=== PATIENT | female | born 1940 | race Caucasian/White ===

== ENCOUNTER → 2021-10-22 09:45 | Outpatient (BNVA) | payer MEDICARE, SELFPAY | PROVIDERS: PCP Family Medicine; Visit Provider Internal Medicine Cardiovascular Disease | DX: I11.0 Hypertensive heart disease with heart failure (principal); R06.02 Shortness of breath; I50.33 Acute on chronic diastolic (congestive) heart failure; I48.11 Longstanding persistent atrial fibrillation; Z95.0 Presence of cardiac pacemaker; R06.00 Dyspnea, unspecified; M79.89 Other specified soft tissue disorders | CPT/HCPCS: 80048; 83880; 99214; 99215 ==

== ENCOUNTER → 2022-01-31 10:01 | Outpatient (BNVA) | payer MEDICARE, SELFPAY | PROVIDERS: PCP Family Medicine; Visit Provider Internal Medicine Cardiovascular Disease | DX: Z45.010 Encounter for checking and testing of cardiac pacemaker pulse generator [battery] (principal) | CPT/HCPCS: 93279 ==

== ENCOUNTER 2022-04-08 12:50 | Outpatient (CLI) | payer MEDICARE, SELFPAY ==
--- NOTE | 2022-04-08 13:00 | USCV_ITS ---
Keara Perez Age: 81 Gender: F : 1940 Exam Date: 04/08/2022 13:06 Ordering Phys: Naa Ferguson MD ([email or web address]) Technologist: Pilo Nolasco Exam Location: [facility] – [place] Indication: sob/chf BP: 170 / 90 HR: 79 Rhythm: Sinus Technical Quality: Adequate MEASUREMENTS (Male / Female) Normal Values 2D ECHO LV Diastolic Diameter PLAX 5.8 cm 4.2 - 5.9 / 3.9 - 5.3 cm LV Systolic Diameter PLAX 3.5 cm IVS Diastolic Thickness 0.7 cm 0.6 - 1.0 / 0.6 - 0.9 cm IVS Systolic Thickness 0.9 cm LVPW Diastolic Thickness 1.1 cm 0.6 - 1.0 / 0.6 - 0.9 cm LVPW Systolic Thickness 1.6 cm LVOT Diameter 2.0 cm LV Ejection Fraction 2D Teich 69.3 % LV Ejection Fraction MOD 2C 60.8 % LV Ejection Fraction 2C AL 59.4 % LA Diameter 3.2 cm LA Width 3.8 cm LA Height 4.5 cm RA Width 3.4 cm RA Height 4.1 cm Aorta at Sinotubular Diameter 2.5 cm IVC Diameter 1.5 cm M-MODE Aortic Annulus Diameter 2.8 cm LA Ao Ratio MM 1.1 MV E Point Septal Separation 0.4 cm DOPPLER AV Peak Velocity 128.5 cm/s LVOT Peak Velocity 81.0 cm/s AV Area Cont Eq vti 2.1 cm squared AV Area Cont Eq pk 2.0 cm squared MV Peak Velocity 180.0 cm/s MV Area PHT 5.9 cm squared Mitral E to A Ratio 3.2 MV E' Velocity 75.0 cm/s Mitral E to MV E' Ratio 11.2 Mitral E to LV E' Lateral Ratio 11.4 Mitral E to LV E' Septal Ratio 10.9 TR Peak Velocity 342.8 cm/s TR Peak Gradient 47.0 mmHg TR Mean Velocity 262.3 cm/s TR Mean Gradient 29.4 mmHg TR Velocity Time Integral 99.6 cm Right Atrial Pressure 3.0 mmHg Pulmonary Artery Systolic Pressu 50.0 mmHg RV Acceleration Time 0.1 s RV Ejection Time 0.3 s RV AcT/ET 0.2 FINDINGS Left Ventricle Left ventricle is normal in size. LV systolic function is normal with EF of 55 to 60%. No regional wall motion abnormalities are seen. Diastolic function is indeterminate because of paced rhythm. Right Ventricle Normal in size and function. Pacemaker lead is seen Right Atrium Normal in size Left Atrium Normal in size Mitral Valve Moderate to severe mitral annular calcification is seen. Mild mitral regurgitation. Mild mitral stenosis with mean gradient 5 mmHg. Aortic Valve Grossly normal normal aortic valve. No significant aortic stenosis is seen. Trace regurgitation. Tricuspid Valve Mild tricuspid regurgitation. RVSP is 40 to 45 mmHg. This is consistent with mild to moderate pulmonary hypertension. Pulmonic Valve Not well-visualized. Trace pulmonic regurgitation. Pericardium Normal Aorta Normal in size IVC CONCLUSIONS LV systolic function is normal with a EF of 55 to 60%. Diastolic function is indeterminate because of paced rhythm. Moderate to severe mitral annular calcification seen. Mild mitral regurgitation. Mild mitral stenosis. Trace aortic regurgitation. Mild tricuspid regurgitation. Mild to moderate pulmonary hypertension. Trace pulmonic regurgitation. No comparison studies are available Mikhail Montoya MD (Electronically Signed) Final Date: 12 April 2022 14:41 S
== END 2022-04-08 12:51 | disposition home or self-care (01) ==
LOC: RAD 12:51
PROVIDERS: PCP Family Medicine; Visit Provider Internal Medicine Cardiovascular Disease
DX: R06.00 Dyspnea, unspecified (principal); R06.02 Shortness of breath; I25.10 Atherosclerotic heart disease of native coronary artery without angina pectoris; I34.0 Nonrheumatic mitral (valve) insufficiency; I07.1 Rheumatic tricuspid insufficiency; I27.20 Pulmonary hypertension, unspecified
CPT/HCPCS: 93306

== ENCOUNTER → 2022-05-28 14:15 | Outpatient (BNVA) | payer MEDICARE, MEDICAID, SELFPAY | PROVIDERS: PCP Family Medicine; Visit Provider Internal Medicine Cardiovascular Disease | DX: I48.11 Longstanding persistent atrial fibrillation (principal); R06.02 Shortness of breath; Z95.0 Presence of cardiac pacemaker; M79.89 Other specified soft tissue disorders; I10 Essential (primary) hypertension; Z87.891 Personal history of nicotine dependence | CPT/HCPCS: 99213; 99214 ==

== ENCOUNTER → 2022-11-12 10:00 | Outpatient (BNVA) | payer MEDICARE, MEDICAID, SELFPAY | PROVIDERS: PCP Family Medicine; Visit Provider Internal Medicine Cardiovascular Disease | DX: Z45.010 Encounter for checking and testing of cardiac pacemaker pulse generator [battery] (principal); I10 Essential (primary) hypertension; I48.11 Longstanding persistent atrial fibrillation; M79.89 Other specified soft tissue disorders; R06.02 Shortness of breath; Z87.891 Personal history of nicotine dependence | CPT/HCPCS: 99214 ==

== ENCOUNTER 2022-11-19 09:08 | Outpatient (CLI) | payer MEDICARE, MEDICAID, SELFPAY ==
[2022-11-19 09:39] LABS: Basophils % 0.4 %; Eosinophils # 0.2 10^3/uL (0.0-0.8); Eosinophils % 2.1 %; Hematocrit 43.2 % (37.0-47.0); Hemoglobin 13.6 g/dL (11.5-15.3); Lymphocytes # 2.9 10^3/uL (0.8-4.8); Lymphocytes % 29.4 %; Mean Corpuscular HGB Conc 31.5 g/dL (30.0-36.0); Mean Corpuscular Hemoglobin 28.2 pg (28.0-34.0); Mean Corpuscular Volume 89.6 fl (81-99); Mean Platelet Volume 8.7 fL (7.4-10.4); Monocytes # 0.5 10^3/uL (0.2-0.9); Monocytes % 5.5 %; Neutrophils # 6.06 10^3/uL (1.8-7.7); Neutrophils % 62.3 %; Nucleated Red Blood Cells % 0 %; Platelet Count 299 10^3/cmm (130-400); Red Blood Count 4.82 10^6/uL (4.1-5.3); Red Cell Distribution Width 14.3 % (12.1-15.1); White Blood Count 9.7 10^3/uL (4.0-10.0)
[2022-11-19 10:01] LABS: Blood Urea Nitrogen 15 mg/dL (8-23); Calcium 9.1 mg/dL (8.5-10.5); Carbon Dioxide 26 mmol/L (22-29); Chloride 100 mmol/L (98-107); Glucose 114 mg/dL (65-115); Osmolality Calculated 284 mOsm/kg (285-295); Sodium 136 mmol/L (136-145)
[2022-11-19 10:02] LABS: Anion Gap 14.4 (5-19); Potassium 4.4 mmol/L (3.5-5.1)
== END 2022-11-19 09:09 | disposition home or self-care (01) ==
LOC: LAB 09:15
PROVIDERS: PCP Family Medicine; Visit Provider Internal Medicine Cardiovascular Disease
DX: Z45.010 Encounter for checking and testing of cardiac pacemaker pulse generator [battery] (principal)
CPT/HCPCS: 36415; 80048; 85025; 86850; 86900

== ENCOUNTER 2022-11-21 05:56 | Outpatient (CLI) | payer MEDICARE, MEDICAID, SELFPAY ==
[2022-11-21] VITALS (8 sets, daily range): BP systolic 134–189; BP diastolic 80–109; PULSE 65–82; RESP 16–17; TEMP 36.4–36.6; O2SAT 90–97; BMI 29.1
--- NOTE | 2022-11-21 07:15 | P.HPUD_ITS ---
Surgery/Procedure H&P Update DATE OF PROCEDURE: November 21, 2022 DATE H&P PERFORMED: 11/12/22 H&P UPDATE INFORMATION: I have reviewed H&P completed within last 30 days, I have examined patient prior to procedure and No changes to prior documentation PREOP DIAGNOSIS: PPM, GINGER PRIMARY INDICATION FOR PROCEDURE: Pt with chronic AFIB and symptomatic bradycardia, pacemaker dependent. PLANNED PROCEDURE: Operation Date: 11/21/22 07:00 Proposed Procedures p Gen change out ICD 23518,Z45.010(Not Applicable) - Naa Ferguson MD PATIENT REASSESSED PRIOR TO SEDATION, WITH NO CHANGE NOTED: Yes PHYSICAL EXAM: alert, oriented x 3, clear to auscultation bilaterally and regu lar rate & rhythm AIRWAY EVAL/ANESTHESIA PLAN: normal airway, see other exam findings, ASA III, Monitored Anesthesia, Local Anesthesia, Risks, benefits & alternatives of sedati on and/or procedure discussed and Patient agrees to continue as planned
--- NOTE | 2022-11-21 08:51 | P.OP_ITS ---
Operative Report Date of procedure: November 21, 2022 Pre-op diagnosis: Preop Diagnosis PPM, GINGER Procedure: PROCEDURE: PACEMAKER REVISION PREOPERATIVE DIAGNOSIS: Pacemaker elective replacement indication. POSTOPERATIVE DIAGNOSIS: Pacemaker elective replacement indication. ESTIMATED BLOOD LOSS: None COMPLICATIONS: None. BRIEF HISTORY: The patient is 81-year-old white female who had a permanent pacemaker implantation for atrial fibrillation/symptomatic bradycardia, in April 2014. The patient was found to have elective replacement indication, during routine office followup evaluation. For further management of patient's condition for the symptomatic bradycardia, the patient required a pacemaker revision. The procedure was explained to the patient and her family in detail with the risks and benefits. The risks of bleeding, hematoma, vascular injury, infection and other concomitant complications were explained in detail, which the patient understood well and consented to proceed. PROCEDURES PERFORMED: 1. Explantation of the old pacemaker generator. 2. Implantation of the new generator. The patient brought to the Cardiac Supply Service Worker. The left side of the neck and the subclavian area were cleaned and draped in a sterile fashion. 1% Xylocaine was used for local anesthetic agent. A 2 inch long incision was made just below the previous pacemaker scar. By sharp and blunt dissection, the pacemaker pocket was accessed. The old generator was delivered from the pocket. The generator was detached from the lead. The new Medtronic generator was attached to the lead. The pacemaker pocket was copiously irrigated with vancomycin solution. Complete hemostasis was achieved. The lead was positioned behind the generator and the generator was attached to the pectoralis fascia by suturing with 0 Surgilon. Sponge counts were confirmed. The pacemaker pocket was closed in layers. Skin w as approximated using 4-0 Vicryl. EXPLANTED DEVICE: Pacemaker Generator: Brand: Sensia. Model number:[id number] Serial number: [id number]. Date of implant: 04/13/2014 IMPLANTED DEVICES: Ventricular Lead: Date of implantation: 04/13/2014 Model number: [id number] Serial number: [id number] Make: Medtronic. Implanted Generator: Date of implantation : 11/21/2022 Brand: Qulin XT DR JESENIA [place]. Model number: W1 SR 01 Serial number: [id number] Make: Medtronic Stimulation Threshold: The ventricular sensing was not obtained because of the pacer dependency. Lead impedance was 551 and the pacing threshold was 0.75 volts at 0.4 milliseconds. The pacemaker was set for VVIR mode with an upper rate of 120 and a lower rate of 80. The sleep border was turned on for a rate of 70 between 9:30 PM and 6:30 AM A pressure dressing was applied over the pacemaker site. The patient was transferred back to medical floor in stable condition. Sponge counts were correct.
[2022-11-21] MEDS: lisinopril 10 mg Tablet PO (09:49)
[2022-11-21] MEDS: pantoprazole DR 40 mg Tablet PO (09:49)
[2022-11-21] MEDS: ceFAZolin 2,000 MG in sodium chloride 0.9% (plus) 50 ML 100 MG IV ×2 (15:30→23:23)
[2022-11-22] VITALS: BP 128/78; RESP 16; TEMP 36.6; O2SAT 96
[2022-11-22 03:50] VITALS: BP 120/72; PULSE 78; RESP 16; TEMP 36.7; O2SAT 92
--- NOTE | 2022-11-22 05:32 | ECG_ITS ---
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 Measurements Intervals Prospect Rate: 69 P: 0 MD: 0 QRS: -70 QRSD: 170 T: 105 QT: 458 QTc: 493 Interpretive Statements ELECTRONIC VENTRICULAR PACEMAKER ABNORMAL RHYTHM ECG No previous ECG available for comparison Electronically Signed On 11-22-2022 10:07:34 CDT by Raul Corea M.D. [id number]
[2022-11-22] MEDS: ceFAZolin 2,000 MG in sodium chloride 0.9% (plus) 50 ML 100 MG IV (05:39)
[2022-11-22 06:00] VITALS: PULSE 70
--- NOTE | 2022-11-22 07:56 | PM.DCS ---
Discharge Providers Date of Admission: November 21, 2022 Date of Discharge: November 22, 2022 Attending Provider at Admission: raymond Attending Provider at Discharge: Naa Ferguson MD Primary Care Provider: Hector Castelan Diagnoses at Discharge Discharge Diagnosis (1) Pacemaker at end of battery life: Status: Acute (2) Benign essential HTN: Status: Acute (3) Atrial fibrillation: Status: Acute Qualifiers: Atrial fibrillation type: longstanding persistent Qualified Code(s): I48.11 - Longstanding persistent atrial fibrillation Permanent problem details: Patient has a history of easy bruising and bleeding from all the orifices. So she is not on any oral anticoagulant. Not on even ASA. Reason for Visit Reason for Visit: Z45.010 Brief History: The patient was admitted yesterday for purposes of a pacemaker generator change. Hospital Course Hospital Course The generator change was accomplished without incident. No complications. No bleeding. Physical Exam Narrative: GENERAL: In general she is awake alert and without any discomfort HEENT: Exam within normal limits. NECK: Supple without jugular vein distention. The carotid upstroke is normal without bruits. BACK: Exam normal. LUNGS: Clear. HEART: Regular rate and rhythm. ABDOMEN: Benign without organomegaly or tenderness. EXTREMITIES: No edema. NEUROLOGIC: Exam normal. SKIN: Unremarkable. The pacemaker site is stable. No bleeding or swelling. Discharge Data Studies Completed and Pending Completed Studies During Hospitalization Category Date Time Status LU[facility] ROOM SUPERVISOR request for service Routine Exams 11/21/22 06:00 Completed Procedures Performed Pacemaker generator change out Vitals Last Vital Signs Temp 98.0 F 11/22/22 03:50 Pulse 70 11/22/22 06:00 Resp 16 11/22/22 03:50 BP 120/72 11/22/22 03:50 Pulse Ox 92 11/22/22 03:50 O2 Del Method Room Air 11/22/22 03:50 O2 Flow Rate 2 11/21/22 20:00 Discharge Plan Discharge Patient Disposition: Home Prescriptions: New cephalexin 500 mg capsule 500 mg PO Q6H 5 Days Qty: 20 0RF multivitamin [Super Multivitamin] Tablet 1 tab PO DAILY Qty: 14 0RF Continued Betimol 0.5 % drops 1 drop ophthalmic (eye) DAILY latanoprost 0.005 % drops 1 drop ophthalmic (eye) DAILY omeprazole 40 mg capsule,delayed release(DR/EC) 40 mg PO DAILY lisinopril 10 mg tablet 10 mg PO DAILY Discharge Orders: Discharge Order (Routine); Ordered 11/22/22 Ordered By: Raul Corea Referrals: Lyla Hughes FNP [Nurse Practitioner] - 7-10 days (Pacemaker site check and pacemaker interrogation.) Diet: Advance as tolerated and Usual diet Activity: Limit activity as instructed Activity Restrictions/Additional Instructions: Limit the movements of the left shoulder to 45 degrees for the next 10 days. Avoid any weight lifting with the left hand of more than 5 pounds. Keep the pacemaker site clean and dry. Appointment the [facility] to be seen by the nurse practitioner in 1 week for a wound check and pacemaker check. Take the antibiotics as prescribed. Contact the office or come back to the hospital, if there is any unusual swelling or bleeding at the pacemaker site Discharge Attestations Time Spent in Discharge Care*: less than 30 min Quality Metrics Clinical Quality Measures [ No reported AMI, CVA or VTE this stay] Coding Level of Care Code Acute Code for Chg Fwd Diagnoses Pacemaker at end of battery life Z45.010 Benign essential HTN I10 Atrial fibrillation I48.11 Atrial fibrillation type: longstanding persistent
[2022-11-22 08:00] VITALS: BP 144/79; PULSE 81; RESP 16; TEMP 37.3; O2SAT 91
--- NOTE | 2022-11-22 08:45 | PC.NURSE ---
Called patients ride her son Bryan. He said he was told she would not be ready until noon so he ran an errand and it will be a little bit before he csn get here as they live in [place].
== END 2022-11-22 09:30 | disposition home or self-care (01) ==
LOC: CCL 05:58 → MEDSURG 13:14
PROVIDERS: PCP Family Medicine; Visit Provider Internal Medicine Cardiovascular Disease
PROC: 0JPT0PZ Removal of Cardiac Rhythm Related Device from Trunk Subcutaneous Tissue and Fascia, Open Approach (ICD-10-PCS; principal; 2022-11-21 07:00)
DX: Z45.010 Encounter for checking and testing of cardiac pacemaker pulse generator [battery] (principal)
CPT/HCPCS: 33227; 33262; 36415; 93005; 96361; 96365; 96367; 97165; 99152; 99153; A4216; C1769; C1786; J0690; J2250; J2405; J3010; J3370; J7030; J7050

== ENCOUNTER → 2022-12-01 09:56 | Outpatient (BNVA) | payer MEDICARE, MEDICAID, SELFPAY | PROVIDERS: PCP Family Medicine; Visit Provider Nurse Practitioner Family | DX: Z95.0 Presence of cardiac pacemaker (principal) | CPT/HCPCS: 93288; 99024; 99214 ==

== ENCOUNTER → 2023-03-11 09:51 | Outpatient (BNVA) | payer MEDICARE, MEDICAID, SELFPAY | PROVIDERS: PCP Family Medicine; Visit Provider Internal Medicine Cardiovascular Disease | DX: I48.11 Longstanding persistent atrial fibrillation (principal); I10 Essential (primary) hypertension; Z95.0 Presence of cardiac pacemaker; J43.9 Emphysema, unspecified; Z87.891 Personal history of nicotine dependence | CPT/HCPCS: 99214 ==

== ENCOUNTER → 2023-03-31 15:16 | Outpatient (BNVA) | payer MEDICARE, MEDICAID, SELFPAY | PROVIDERS: PCP Family Medicine; Visit Provider Internal Medicine Cardiovascular Disease | DX: Z45.010 Encounter for checking and testing of cardiac pacemaker pulse generator [battery] (principal) | CPT/HCPCS: 93296 ==

== ENCOUNTER → 2023-07-08 16:29 | Outpatient (BNVA) | payer MEDICARE, MEDICAID, SELFPAY | PROVIDERS: PCP Family Medicine; Visit Provider Internal Medicine Cardiovascular Disease | DX: Z45.010 Encounter for checking and testing of cardiac pacemaker pulse generator [battery] (principal) | CPT/HCPCS: 93296 ==

== ENCOUNTER → 2023-09-02 17:09 | Outpatient (BNVA) | payer MEDICARE, MEDICAID, SELFPAY | PROVIDERS: PCP Family Medicine; Visit Provider Internal Medicine | DX: Z45.010 Encounter for checking and testing of cardiac pacemaker pulse generator [battery] (principal) | CPT/HCPCS: 93296 ==

== ENCOUNTER → 2024-02-08 14:15 | Outpatient (BNVA) | payer MEDICARE, SELFPAY | PROVIDERS: PCP Family Medicine; Visit Provider Internal Medicine Cardiovascular Disease | DX: I48.11 Longstanding persistent atrial fibrillation (principal); R06.00 Dyspnea, unspecified; Z95.0 Presence of cardiac pacemaker; I10 Essential (primary) hypertension | CPT/HCPCS: 99214 ==

== ENCOUNTER → 2024-08-11 09:15 | Outpatient (BNVA) | payer MEDICARE, SELFPAY | PROVIDERS: PCP Family Medicine; Visit Provider Nurse Practitioner Family | DX: I48.11 Longstanding persistent atrial fibrillation (principal); M79.89 Other specified soft tissue disorders; R06.00 Dyspnea, unspecified; Z95.0 Presence of cardiac pacemaker; I10 Essential (primary) hypertension; Z87.891 Personal history of nicotine dependence | CPT/HCPCS: 99214 ==